=== PATIENT | female | born 1975 | race African-American/Black ===

== ENCOUNTER 2017-09-17 11:16 | Emergency (ER) | payer MEDICAID, OTHER ==
[~2017-09-17] VITALS: Ht 149.9 cm; Wt 69.0 kg
[~2017-09-17 11:16] MED LIST: OMEP20TA2 PO
[2017-09-17 13:18] VITALS: BP 130/88
== END 2017-09-17 13:19 | disposition home or self-care (01) ==
LOC: ER 11:16
DX: S80.862A Insect bite (nonvenomous), left lower leg, initial encounter (principal); S80.861A Insect bite (nonvenomous), right lower leg, initial encounter; Z90.49 Acquired absence of other specified parts of digestive tract; Z98.51 Tubal ligation status; Z98.890 Other specified postprocedural states; W57.XXXA Bitten or stung by nonvenomous insect and other nonvenomous arthropods, initial encounter; Y93.89 Activity, other specified; Y92.89 Other specified places as the place of occurrence of the external cause; Y99.8 Other external cause status
CPT/HCPCS: 99282

== ENCOUNTER 2018-08-12 03:03 | Emergency (ER) | payer MEDICAID, OTHER ==
[~2018-08-12] VITALS: Ht 149.9 cm; Wt 65.4 kg
[2018-08-12] MEDS ORDERED: KETOROLAC 60MG/2ML VIAL IM ONE (06:45)
[2018-08-12] MEDS ORDERED: DIPHENHYDRAMINE 25MG CAPSULE PO ONE (06:45)
[2018-08-12] MEDS ORDERED: FAMOTIDINE 20MG TABLET PO ONE (06:45)
[2018-08-12 07:10] VITALS: BP 144/92
== END 2018-08-12 07:22 | disposition home or self-care (01) ==
LOC: ER 03:03
DX: L29.8 Other pruritus (principal); G43.909 Migraine, unspecified, not intractable, without status migrainosus; B37.89 Other sites of candidiasis; Z88.1 Allergy status to other antibiotic agents; Z90.49 Acquired absence of other specified parts of digestive tract; Z98.890 Other specified postprocedural states; Z98.51 Tubal ligation status
CPT/HCPCS: 96372; 99283; J1885; Q0163

== ENCOUNTER 2018-10-29 09:02 | Emergency (ER) | payer MEDICAID ==
[~2018-10-29] VITALS: Ht 149.9 cm; Wt 64.0 kg
[2018-10-29 09:49] LABS: CLARITY URINE CLEAR (CLEAR); COLOR URINE YELLOW (YELLOW); KETONES URINE NEGATIVE (NEGATIVE); LEUKOCYTE ESTERASE URINE NEGATIVE (NEGATIVE); NITRITE URINE NEGATIVE (NEGATIVE); OCCULT BLOOD URINE NEGATIVE (NEGATIVE); PH URINE 6.5 (4.5-8.0); PROTEIN URINE NEGATIVE (NEGATIVE); SPECIFIC GRAVITY URINE 1.014 (1.005-1.030); UROBILINOGEN URINE 0.2 E.U./dL (0.2-1.0)
[2018-10-29 09:58] LABS: BASOPHILS % 0.7 % (0.0-2.0); EOSINOPHILS % 1.1 % (0.0-5.0); HEMOGLOBIN. 12.7 g/dL (12.0-16.0); LYMPHOCYTES % 31.6 % (20.0-50.0); MEAN CORPUSCULAR HEMOGLOBIN 30.1 pg (28.0-32.0); MEAN CORPUSCULAR VOLUME 90.1 fL (81.0-99.0); MONOCYTES % 7.9 % (2.0-8.0); NEUTROPHILS % 58.7 % (40.0-76.0); PLATELET 312 x1000/uL (130-400); RED BLOOD CELL COUNT 4.21 mill/uL (4.2-5.4); RED CELL DISTRIBUTION WIDTH 13.4 % (11.6-14.6)
[2018-10-29] MEDS: IBUPROFEN 600MG TABLET PO ONE (09:58)
[2018-10-29 10:04] LABS: CHLORIDE 106 mEq/L (98-107)
[2018-10-29 10:12] LABS: HCG SCREEN NEGATIVE
[2018-10-29 11:42] VITALS: BP 135/87
[2018-10-29] MEDS: FLUCONAZOLE 150MG TABLET PO NR (11:48)
[2018-10-29] MEDS: FLUCONAZOLE 100MG TABLET PO ONE (11:49)
[2018-10-31 04:15] LABS: CHLAMYDIA TRACHOMATIS NAA Negative (Negative); NEISSERIA GONORRHOEAE NAA Negative (Negative)
== END 2018-10-29 12:04 | disposition home or self-care (01) ==
LOC: ER 09:02
DX: B37.3 Candidiasis of vulva and vagina (principal); R10.2 Pelvic and perineal pain; Z98.890 Other specified postprocedural states; Z98.51 Tubal ligation status; Z88.1 Allergy status to other antibiotic agents; Z79.899 Other long term (current) drug therapy; Z90.49 Acquired absence of other specified parts of digestive tract
CPT/HCPCS: 36415; 76830; 76856; 81003; 81025; 84703; 87491; 87591; 99284

== ENCOUNTER 2021-06-19 09:19 | Emergency (ER) | payer MEDICAID ==
[~2021-06-19] VITALS: Ht 149.9 cm; Wt 74.0 kg
[2021-06-19 09:38] VITALS: BP 128/80
[2021-06-19] MEDS ORDERED: VISCOUS LIDOCAINE 2% 15 ML UDC PO STA (09:44)
[2021-06-19] MEDS ORDERED: MAGNESIUM/ALUMINUM HYDROXIDE/SIMETHICONE 30ML UDC PO STA (09:44)
[2021-06-19] MEDS ORDERED: METOCLOPRAMIDE HCL 10MG TABLET PO ONE (09:45)
[2021-06-19 10:38] LABS: CLARITY URINE CLEAR (CLEAR); COLOR URINE YELLOW (YELLOW); KETONES URINE NEGATIVE (NEGATIVE); LEUKOCYTE ESTERASE URINE NEGATIVE (NEGATIVE); NITRITE URINE NEGATIVE (NEGATIVE); OCCULT BLOOD URINE NEGATIVE (NEGATIVE); PROTEIN URINE NEGATIVE (NEGATIVE); SPECIFIC GRAVITY URINE 1.016 (1.005-1.030); UROBILINOGEN URINE 0.2 E.U./dL (0.2-1.0)
[2021-06-19 11:20] LABS: BASOPHILS % 0.5 % (0.0-2.0); EOSINOPHILS % 2.3 % (0.0-5.0); HEMATOCRIT. 37.7 % (36.0-48.0); HEMOGLOBIN. 12.4 g/dL (12.0-16.0); LYMPHOCYTES % 29.8 % (20.0-50.0); MEAN CORPUSCULAR HEMOGLOBIN 29.1 pg (28.0-32.0); MEAN CORPUSCULAR VOLUME 88.4 fL (81.0-99.0); MEAN PLATELET VOLUME 7.2 fl (7.4-10.4); NEUTROPHILS % 58.4 % (40.0-76.0); PLATELET 383 x1000/uL (130-400); RED BLOOD CELL COUNT 4.26 mill/uL (4.2-5.4); RED CELL DISTRIBUTION WIDTH 13.5 % (11.6-14.6)
[2021-06-19 11:27] LABS: CHLORIDE 108 mEq/L (98-107)
[2021-06-19] MEDS ORDERED: NITR-87 MT (12:06)
[2021-06-19] MEDS ORDERED: FAMO-135 MT (12:06)
[2021-06-19] MEDS ORDERED: VISCOUS LIDOCAINE 2% 15 ML UDC PO SCH (12:30)
[2021-06-19] MEDS ORDERED: MAGNESIUM/ALUMINUM HYDROXIDE/SIMETHICONE 30ML UDC PO SCH (12:30)
[2021-06-19] MEDS ORDERED: METOCLOPRAMIDE HCL 10MG TABLET PO SCH (12:30)
== END 2021-06-19 12:39 | disposition home or self-care (01) ==
LOC: ER 09:19
DX: R10.0 Acute abdomen (principal); R30.0 Dysuria; R35.0 Frequency of micturition; R39.15 Urgency of urination; R11.0 Nausea; Z87.440 Personal history of urinary (tract) infections
CPT/HCPCS: 36415; 71045; 80053; 81003; 81025; 85025; 99284; J8597